=== PATIENT | female | born 1995 | race Caucasian/White ===

== ENCOUNTER 2022-05-08 01:05 | Emergency (ER) | payer SELFPAY ==
--- NOTE | 2022-05-08 01:17 | NUR ---
Pt not in the waiting room, told clerk telegraph service she can't wait any longer.
== END 2022-05-08 01:17 | disposition left against medical advice (07) ==
LOC: ER 01:17
DX: Z53.21 Procedure and treatment not carried out due to patient leaving prior to being seen by health care provider (principal)